=== PATIENT | male | born 1995 | race Caucasian/White ===

== ENCOUNTER 2017-09-05 10:20 | Emergency (ER) | payer OTHER ==
[~2017-09-05] VITALS: Ht 177.8 cm; Wt 84.1 kg
[2017-09-05 10:21] VITALS: BP 130/76
[2017-09-05] MEDS ORDERED: ZOFR4TAB3 PO (11:07)
[2017-09-05] MEDS ORDERED: ONDANSETRON 4 MG ORAL DISINTEGRATING TAB (S0181) PO ONE (11:15)
== END 2017-09-05 11:26 | disposition home or self-care (01) ==
LOC: M ED 10:20
DX: R11.2 Nausea with vomiting, unspecified (principal); R01.1 Cardiac murmur, unspecified; F17.210 Nicotine dependence, cigarettes, uncomplicated